=== PATIENT | female | born 1980 | race Caucasian/White ===

== ENCOUNTER 2016-11-06 12:18 | Emergency (ER) | payer OTHER ==
--- NOTE | ~2016-11-06 | EKG ---
PATIENT: THAO RENTERIA UNIT #: [id number] Ventricular Rate: 90 BPM Atrial Rate: 90 BPM P-R Interval: 130 ms QRS Duration: 92 ms Q-T Interval: 362 ms QTC Calculation(Bezet): 442 ms P [place]: 15 degrees Calculated R [place]: 60 degrees Calculated T [place]: 22 degrees Diagnosis Line: Normal sinus rhythm Diagnosis Line: Pulmonary disease pattern Diagnosis Line: Borderline ECG Diagnosis Line: Diagnosis Line: Confirmed by ALFONSO NICOLAS MD ([id number]) on 11/07/2016 Diagnosis Line: 7:56:43 PM INTERPRETING MD: MARIA ISABEL DRIVER
[~2016-11-06 12:18] MED LIST: NAPROSYN500 MG PO; PHENERGAN25 M1 PO
[2016-11-06 12:28] LABS: BASOPHIL% 0.7 % (0-2.5); EOSINOPHIL# 0.2 X10e3 (0-0.7); EOSINOPHIL% 3.1 % (0.0-7.0); HEMATOCRIT 42.6 % (35.0-45.0); HEMOGLOBIN 14.2 gm/dL (12.0-16.0); LYMPHOCYTE# 2.7 X10e3 (1.0-3.5); LYMPHOCYTE% 40.1 % (17.0-45.0); MEAN CELL VOLUME 86.3 FL (83-96); MEAN CORPUSCULAR HEMOGLOBIN 28.8 PG (28-34); MEAN CORPUSCULAR HGB CONC 33.4 g/dL (30-36); MEAN PLATELET VOLUME 9.4 FL (6.5-11.5); MONOCYTE# 0.4 X10e3 (0-1.0); MONOCYTE% 6.5 % (3.0-12.0); NEUTROPHIL# 3.4 X10e3 (1.5-7.1); NEUTROPHIL% 49.6 % (40-75); PLATELET COUNT 207 X10e3 (140-420); RED BLOOD COUNT 4.93 X10e (3.90-5.30); RED CELL DISTRIBUTION WIDTH 12.4 % (11.0-15.5); WHITE BLOOD COUNT 6.8 X10e3 (4.0-10.5)
[2016-11-06 12:30] LABS: DIFF IND NO
[2016-11-06 12:44] LABS: CALCIUM SERUM 8.7 mg/dL (8.4-10.2); CREATININE SERUM 0.7 mg/dL (0.6-1.4); GLOM FILT RATE Estimated 109.9 mL/min (>60); POTASSIUM 3.5 mmol/L (3.5-5.1)
[2016-11-06 13:28] LABS: URINE SOURCE CLEAN CATCH
[2016-11-06 13:32] LABS: URINE APPEARANCE CLEAR; URINE BILIRUBIN NEG (NEG); URINE BLOOD 3+ (NEG); URINE COLOR YELLOW; URINE GLUCOSE NEG (NEG); URINE KETONE NEG (NEG); URINE LEUKOCYTE ESTERASE NEG (NEG); URINE NITRATE NEG (NEG); URINE PROTEIN TRACE (NEG); URINE SPECIFIC GRAVITY 1.023 (1.003-1.035)
[2016-11-06 13:34] LABS: URINE BACTERIA AUWI 1+ (NEGATIVE); URINE SQUAMOUS EPITHELIAL CELL FEW /[HPF]
== END 2016-11-06 14:19 | disposition home or self-care (01) ==
LOC: CED 12:18
PROVIDERS: Emergency Medicine
DX: R42 Dizziness and giddiness (principal); R53.81 Other malaise; R53.83 Other fatigue; F17.200 Nicotine dependence, unspecified, uncomplicated
CPT/HCPCS: 36415; 80048; 81003; 84703; 85025; 93005; 99283

== ENCOUNTER 2016-11-19 23:55 | Emergency (ER) | payer OTHER ==
--- NOTE | ~2016-11-19 | CT23 ---
[facility] A Service of [facility] & [facility] RADIOLOGY TEXT RESULTS PATIENT: THAO RENTERIA LOCATION: [facility] : 78 UNIT #: [id number] AGE: [address]: Adebayo Paris MD SEX: F ORDER DR: [id number] [facility] [address] [place], [place] [address] [id number] E MR#: [id number] Acc #: [id number] NAME: THAO RENTERIA : 1980 SEX: F STUDY DATE/TIME: 11/20/2016 1:37 UNIT: [facility] ROOM: STUDY DESCRIPTION: CT Angio Neck Attending Physician: Adebayo Paris M.D. Ordering Physician: Sean Ritter M.D. Primary Care Physician: Primary Care Physician No MEDICAL IMAGING REPORT This report is preliminary unless electronic signature is present EXAM CT angiogram of the neck HISTORY FINDINGS Please see CT angiogram of the head for results. Dictated by... Mendoza Luciano M.D. THIS IS AN ELECTRONICALLY VERIFIED REPORT Mendoza Luciano M.D. at 11/20/2016 4:44 PM Orquidea TD: 11/20/2016 08:53 JOB #: [id number] MEDICAL IMAGING REPORT Page 1 of 1 COPY
--- NOTE | ~2016-11-19 | EKG ---
PATIENT: THAO RENTERIA UNIT #: [id number] Ventricular Rate: 103 BPM Atrial Rate: 103 BPM P-R Interval: 136 ms QRS Duration: 98 ms Q-T Interval: 350 ms QTC Calculation(Bezet): 458 ms P [place]: 49 degrees Calculated R [place]: 81 degrees Calculated T [place]: 41 degrees Diagnosis Line: Sinus tachycardia Diagnosis Line: Incomplete right bundle branch block Diagnosis Line: Borderline ECG Diagnosis Line: No previous ECGs available Diagnosis Line: Confirmed by ALFONSO NICOLAS MD ([id number]) on 11/20/2016 Diagnosis Line: 10:38:15 PM INTERPRETING MD: MARIA ISABEL DRIVER
--- NOTE | ~2016-11-19 | CT71 ---
[facility] A Service of [facility] & [facility] RADIOLOGY TEXT RESULTS PATIENT: THAO RENTERIA LOCATION: [facility] : 76 UNIT #: [id number] AGE: [address]: Adebayo Paris MD SEX: F ORDER DR: [id number] [facility] [address] [place], [place] [address] [id number] E MR#: [id number] Acc #: [id number] NAME: THAO RENTERIA : 1980 SEX: F STUDY DATE/TIME: 11/20/2016 1:30 UNIT: [facility] ROOM: STUDY DESCRIPTION: CT Head Wo Contrast Attending Physician: Adebayo Paris M.D. Ordering Physician: Sean Ritter M.D. Primary Care Physician: Primary Care Physician No MEDICAL IMAGING REPORT This report is preliminary unless electronic signature is present EXAM CT head, noncontrast, 11/20/2016 HISTORY 36-year-old female in the ED complaining of right side headache and neck pain with dizziness. Symptoms for about [address] examination of the head without IV contrast. This CT exam was performed with one or more of the following radiation dose reduction techniques: Automatic exposure control, adjustment of mA and/or kV according to patient size, and iterative reconstruction. FINDINGS The examination is negative. No evidence of intracranial hemorrhage, mass, mass effect, cerebral edema, hydrocephalus or additional abnormality. IMPRESSION Negative head CT examination. Dictated by... Isidro Leone M.D. THIS IS AN ELECTRONICALLY VERIFIED REPORT Isidro Leone M.D. at 11/20/2016 5:59 AM JASMYN/terrance TD: 11/20/2016 02:28 JOB #: [id number] MEDICAL IMAGING REPORT Page 1 of 1 COPY
--- NOTE | ~2016-11-19 | CT17 ---
[facility] A Service of [facility] RADIOLOGY TEXT RESULTS PATIENT: THAO RENTERIA LOCATION: [facility] : 76 UNIT #: [id number] AGE: [address]: Adebayo Paris MD SEX: F ORDER DR: [id number] [facility] [address] [place], [place] [address] [id number] E MR#: [id number] Acc #: [id number] NAME: THAO RENTERIA : 1980 SEX: F STUDY DATE/TIME: 11/20/2016 1:37 UNIT: [facility] ROOM: STUDY DESCRIPTION: CT Angio Head Attending Physician: Adebayo Paris M.D. Ordering Physician: Sean Ritter M.D. Primary Care Physician: Primary Care Physician No MEDICAL IMAGING REPORT This report is preliminary unless electronic signature is present EXAM CT scan of the head and neck with contrast with carotid CT angiography HISTORY Right-sided neck and head pain with dizziness for the past 3 weeks. TECHNIQUE Axial imaging was obtained from the mid mediastinum to the top of head with contrast. 100 mL of Isovue was used. CT angiography was performed with thick sliding MIPs, curved planar reformats and 3-D volumetric imaging with surface shaded and volume shaded display. This CT exam was performed with one or more of the following radiation dose reduction techniques: automatic exposure control, adjustment of mA and/or kV according to patient size, and iterative reconstruction. FINDINGS Extravascular structures are unremarkable. The CT angiographic study is normal. There is no evidence of atherosclerotic disease, dissection or aneurysm. No major branch vessel occlusions are seen intracranially. The [place] is intact. In the posterior circulation the right vertebral artery is a little more dominant than the left but both are patent. IMPRESSION Negative CT angiogram. Dictated by... Mendoza Luciano M.D. THIS IS AN ELECTRONICALLY VERIFIED REPORT Mendoza Luciano M.D. at 11/20/2016 4:44 PM [facility] A Service of [facility] & [facility] RADIOLOGY TEXT RESULTS PATIENT: THAO RENTERIA LOCATION: [facility] : 76 UNIT #: [id number] AGE: [address]: Adebayo Paris MD SEX: F ORDER DR: LISA/pan TD: 11/20/2016 08:52 JOB #: [id number] MEDICAL IMAGING REPORT Page 1 of 1 COPY
[2016-11-20 00:36] LABS: BASOPHIL% 0.6 % (0-2.5); EOSINOPHIL# 0.2 X10e3 (0-0.7); EOSINOPHIL% 2.8 % (0.0-7.0); HEMATOCRIT 45.1 % (35.0-45.0); HEMOGLOBIN 14.7 gm/dL (12.0-16.0); LYMPHOCYTE# 2.6 X10e3 (1.0-3.5); LYMPHOCYTE% 39.4 % (17.0-45.0); MEAN CELL VOLUME 87.6 FL (83-96); MEAN CORPUSCULAR HEMOGLOBIN 28.6 PG (28-34); MEAN CORPUSCULAR HGB CONC 32.6 g/dL (30-36); MEAN PLATELET VOLUME 9.7 FL (6.5-11.5); MONOCYTE# 0.4 X10e3 (0-1.0); MONOCYTE% 6.3 % (3.0-12.0); NEUTROPHIL# 3.3 X10e3 (1.5-7.1); NEUTROPHIL% 50.9 % (40-75); PLATELET COUNT 241 X10e3 (140-420); RED BLOOD COUNT 5.14 X10e (3.90-5.30); RED CELL DISTRIBUTION WIDTH 12.9 % (11.0-15.5); WHITE BLOOD COUNT 6.5 X10e3 (4.0-10.5)
[2016-11-20 00:37] LABS: DIFF IND NO
[2016-11-20 00:51] LABS: URINE SOURCE CLEAN CATCH
[2016-11-20 00:57] LABS: ALBUMIN SERUM 4.5 g/dL (3.5-5.0); ALKALINE PHOSPHATASE 66 U/L (32-92); ALT (SGPT) 27 U/L (10-40); AST (SGOT) 23 U/L (10-42); BILIRUBIN, DIRECT <0.1 mg/dL (0.0-0.2); BILIRUBIN,INDIRECT 0.2 mg/dL (0.0-0.9); BILIRUBIN,TOTAL 0.3 mg/dL (0.2-2.0); BLOOD UREA NITROGEN 10 mg/dL (9-23); BUN/CREATININE RATIO 14.28; CARBON DIOXIDE 24 mmol/L (22-31); CHLORIDE 107 mmol/L (100-111); CREATININE SERUM 0.7 mg/dL (0.6-1.4); GLOM FILT RATE Estimated 109.9 mL/min (>60); GLUCOSE FASTING 105 mg/dL (70-110); POTASSIUM 3.8 mmol/L (3.5-5.1); PROTEIN TOTAL SERUM 7.5 g/dL (6.0-8.3); SODIUM 139 mmol/L (135-145)
[2016-11-20 01:02] LABS: URINE APPEARANCE CLEAR; URINE BILIRUBIN NEG (NEG); URINE BLOOD NEG (NEG); URINE COLOR YELLOW; URINE GLUCOSE NEG (NEG); URINE KETONE NEG (NEG); URINE LEUKOCYTE ESTERASE NEG (NEG); URINE NITRATE NEG (NEG); URINE PROTEIN NEG (NEG); URINE SPECIFIC GRAVITY 1.027 (1.003-1.035)
[2016-11-20 01:05] LABS: CULTURE INDICATED? NO
== END 2016-11-20 03:50 | disposition home or self-care (01) ==
LOC: CED 23:55
PROVIDERS: Emergency Medicine
DX: H81.10 Benign paroxysmal vertigo, unspecified ear (principal); I50.9 Heart failure, unspecified; F17.210 Nicotine dependence, cigarettes, uncomplicated; Z98.51 Tubal ligation status
CPT/HCPCS: 36415; 70450; 70496; 70498; 80048; 80076; 81003; 82947; 84703; 85025; 93005; 96361; 96374; 96375; 99284; J2060; J2765; J2930; Q9967

== ENCOUNTER 2017-02-04 11:56 | Emergency (ER) | payer OTHER ==
--- NOTE | ~2017-02-04 | CR21 ---
[facility] A Service of [facility] & [facility] RADIOLOGY TEXT RESULTS PATIENT: THAO RENTERIA LOCATION: [facility] : 76 UNIT #: [id number] AGE: [address]: Agueda Shafer APRN SEX: F ORDER DR: [id number] [facility] [address] [place], [place] [address] [id number] E MR#: [id number] Acc #: [id number] NAME: THAO RENTERIA : 1980 SEX: F STUDY DATE/TIME: 02/04/2017 12:33 UNIT: [facility] ROOM: STUDY DESCRIPTION: CR Ankle Min 3 Views Rt Attending Physician: Agueda Shafer A.P.R.N. Ordering Physician: Ed Doctor [id number] [facility] Primary Care Physician: Primary Care Physician No MEDICAL IMAGING REPORT This report is preliminary unless electronic signature is present EXAM Right ankle 3 views, 02/04/2017 12:33 hours HISTORY Patient twisted right ankle and foot going down stairs yesterday. Foot and ankle pain. COMPARISON Right foot, 02/04/2017 FINDINGS AP, lateral and oblique views demonstrate moderate lateral soft tissue swelling over the distal fibula. There is no fracture or dislocation. IMPRESSION Lateral soft tissue swelling over the distal fibula with no fracture or dislocation. Dictated by... Leticia Leon M.D. THIS IS AN ELECTRONICALLY VERIFIED REPORT Leticia Leon M.D. at 02/05/2017 9:34 AM Jessica TD: 02/04/2017 18:02 JOB #: [id number] MEDICAL IMAGING REPORT Page 1 of 1 COPY
--- NOTE | ~2017-02-04 | CR127 ---
[facility] A Service of [facility] & [facility] RADIOLOGY TEXT RESULTS PATIENT: THAO RENTERIA LOCATION: [facility] : 76 UNIT #: [id number] AGE: [address]: Agueda Shafer APRN SEX: F ORDER DR: [id number] [facility] [address] [place], [place] [address] [id number] E MR#: [id number] Acc #: [id number] NAME: THAO RENTERIA : 1980 SEX: F STUDY DATE/TIME: 02/04/2017 12:35 UNIT: [facility] ROOM: STUDY DESCRIPTION: CR Foot Complete Min 3 View Rt Attending Physician: Agueda Shafer A.P.R.N. Ordering Physician: Ed Doc Mariposa Ho Primary Care Physician: No Primary Care Physician MEDICAL IMAGING REPORT This report is preliminary unless electronic signature is present EXAM Right foot, 3 views; 02/04/2017, 1235 hours. CLINICAL HISTORY Foot and ankle pain and swelling laterally after twisting injury while going down steps yesterday. COMPARISON None. FINDINGS AP, lateral and oblique views demonstrate no fracture, dislocation or degenerative change. IMPRESSION Negative right foot. Dictated by... Leticia Leon M.D. THIS IS AN ELECTRONICALLY VERIFIED REPORT Leticia Leon M.D. at 02/05/2017 9:34 AM Carisa TD: 02/04/2017 18:09 JOB #: [id number] MEDICAL IMAGING REPORT Page 1 of 1 COPY
== END 2017-02-04 13:46 | disposition home or self-care (01) ==
LOC: CED 11:56 → CFTX 11:56 → CED 12:55 → CFTX 13:46
DX: S93.491A Sprain of other ligament of right ankle, initial encounter (principal); X50.1XXA Overexertion from prolonged static or awkward postures, initial encounter; Y92.009 Unspecified place in unspecified non-institutional (private) residence as the place of occurrence of the external cause
CPT/HCPCS: 29540; 73610; 73630; 84703; 99283